=== PATIENT | female | born 1940 | race Two or more races ===

== ENCOUNTER → 2019-08-29 | Emergency (ER) | payer OTHER ==
[~2019-08-29] VITALS: Ht 162.6 cm; Wt 49.9 kg
[~2019-08-29] MED LIST: LEVALBUTER1.25 MG/3 IH; MEDROL4 MG PO; PROAIR HFA8.5 GM IH; SINGULAIR 5MG5 MG PO
== END | disposition left against medical advice (07) ==
LOC: ER 11:34
DX: Z53.20 Procedure and treatment not carried out because of patient's decision for unspecified reasons (principal)

== ENCOUNTER 2019-09-01 07:27 | Emergency (ER) | payer OTHER ==
[~2019-09-01] VITALS: Ht 175.3 cm; Wt 53.1 kg
== END 2019-09-01 15:56 | disposition home or self-care (01) ==
LOC: ER 07:27
DX: J45.901 Unspecified asthma with (acute) exacerbation (principal); J45.998 Other asthma

== ENCOUNTER 2019-09-01 16:13 | Emergency (ER) | payer OTHER ==
[~2019-09-01] VITALS: Ht 162.6 cm; Wt 54.4 kg
== END 2019-09-01 17:01 | disposition home or self-care (01) ==
LOC: ER 16:13
DX: J45.998 Other asthma (principal)

== ENCOUNTER 2019-10-12 00:53 | Emergency (ER) | payer OTHER ==
[~2019-10-12] VITALS: Ht 162.6 cm; Wt 52.6 kg
== END 2019-10-12 21:55 | disposition home or self-care (01) ==
LOC: ER 00:53
DX: J45.998 Other asthma (principal)

== ENCOUNTER 2020-02-24 08:21 | Emergency (ER) | payer OTHER ==
[~2020-02-24] VITALS: Ht 160 cm; Wt 61.2 kg
[2020-02-24] MEDS ORDERED: SPIRIVA RESPIMAT4 G1 (08:27)
[2020-02-24] MEDS ORDERED: ADVAIR HFA 115/12 GM (08:27)
== END 2020-02-24 13:10 | disposition home or self-care (01) ==
LOC: ER 08:21
DX: J45.998 Other asthma (principal)

== ENCOUNTER 2020-07-24 08:42 | Emergency (ER) | payer OTHER ==
[~2020-07-24] VITALS: Ht 162.6 cm; Wt 45.4 kg
[~2020-07-24 08:42] MED LIST changes: +ADVAIR HFA 115/12 GM; +SPIRIVA RESPIMAT4 G1
[2020-07-24] MEDS ORDERED: LEVOTHYROXINE50 MCG PO (09:00)
[2020-07-24] MEDS ORDERED: PROAIR HFA8.5 GM IH (09:00)
[2020-07-24] MEDS ORDERED: MONTELUKAST SOD10 MG PO (09:00)
[2020-07-24] MEDS ORDERED: LISINOPRIL2.5 MG PO (09:00)
[2020-07-24] MEDS ORDERED: SIMVASTATIN40 MG PO (09:01)
== END 2020-07-24 13:29 | disposition home or self-care (01) ==
LOC: ER 08:42
DX: I16.0 Hypertensive urgency (principal); Z20.828 Contact with and (suspected) exposure to other viral communicable diseases

== ENCOUNTER 2020-07-26 11:05 | Emergency (ER) | payer OTHER ==
[~2020-07-26] VITALS: Ht 162.6 cm; Wt 56.7 kg
[~2020-07-26 11:05] MED LIST changes: +LEVOTHYROXINE50 MCG PO; +LISINOPRIL2.5 MG PO; +MONTELUKAST SOD10 MG PO; +SIMVASTATIN40 MG PO
== END 2020-07-26 14:19 | disposition home or self-care (01) ==
LOC: ER 11:05
DX: J45.901 Unspecified asthma with (acute) exacerbation (principal); R06.02 Shortness of breath; F41.1 Generalized anxiety disorder

== ENCOUNTER 2021-03-12 11:46 | Emergency (ER) | payer OTHER ==
[~2021-03-12] VITALS: Ht 162.6 cm; Wt 43.5 kg
== END 2021-03-12 13:38 | disposition home or self-care (01) ==
LOC: ER 11:46
DX: I16.0 Hypertensive urgency (principal); I10 Essential (primary) hypertension

== ENCOUNTER 2021-10-13 14:49 | Emergency (ER) | payer OTHER ==
[~2021-10-13] VITALS: Ht 149.9 cm; Wt 45.4 kg
== END 2021-10-13 19:19 | disposition home or self-care (01) ==
LOC: ER 14:49
DX: I16.0 Hypertensive urgency (principal); I10 Essential (primary) hypertension

== ENCOUNTER 2021-12-24 11:48 | Emergency (ER) | payer OTHER ==
[~2021-12-24] VITALS: Ht 152.4 cm; Wt 45.4 kg
[2021-12-24] MEDS ORDERED: XANAX XR0.5 MG PO (12:04)
== END 2021-12-24 13:23 | disposition home or self-care (01) ==
LOC: ER 11:48
DX: F41.8 Other specified anxiety disorders (principal); I10 Essential (primary) hypertension; E03.9 Hypothyroidism, unspecified

== ENCOUNTER 2022-06-24 13:29 | Emergency (ER) | payer OTHER ==
[~2022-06-24] VITALS: Ht 162.6 cm; Wt 54.4 kg
[~2022-06-24 13:29] MED LIST changes: +XANAX XR0.5 MG PO
[2022-06-24] MEDS ORDERED: INBRIJA42 M1 IH (13:39)
== END 2022-06-24 17:35 | disposition home or self-care (01) ==
LOC: ER 13:29 → EDBD 13:44 → ER 17:35
DX: R42 Dizziness and giddiness (principal); R10.13 Epigastric pain